=== PATIENT | male | born 1955 | race Hispanic/Latino ===

== ENCOUNTER 2025-02-15 14:40 | Emergency (ER) | payer OTHER ==
[2025-02-15 15:13] LABS: Absolute Basophils 0.1 K/uL (0-0.5); Absolute Eosinophils 0.2 K/uL (0-0.5); Absolute Lymphocytes (CBC) 2.6 K/uL (0.7-4.9); Absolute Monocytes 0.4 K/uL (0.1-1.3); Absolute Neutrophil 2.8 K/uL (1.8-8.0); Basophils % 1.1 % (0-1.3); Eosinophils % 3.1 % (0-4.4); Hematocrit 43.4 % (39.6-49.0); Lymphocytes % 43.1 % (15.3-44.8); MCHC 34.5 g/dL (32.0-36.0); MPV 8.5 fL (7.6-11.3); Neutrophils % 45.7 % (41.7-73.7); Nucleated Red Blood Cells % 0.1 % (0-0); Platelets 159 thou/uL (152-406); RBC Red Blood Cell Count 4.99 M/uL (4.33-5.43); Red Cell Distribution Width 13.8 % (12.1-15.2)
[2025-02-15 15:14] LABS: PT Prothrombin Time 10.9 SECONDS (10-13.0); Protime INR 0.95
[2025-02-15 15:32] LABS: Albumin 3.5 g/dL (3.4-5.0); Albumin/Globulin Ratio 1.1 (1.1-1.8); Anion Gap 7.3 mEq/L (5.0-15.0); Bilirubin Direct 0.3 mg/dL (0-0.2); Bilirubin Indirect, Calculated 0.8 mg/dL (0.2-0.8); Bilirubin Total 1.1 mg/dL (0.2-1.0); Globulin 3.1 g/dL (2.3-3.5); Magnesium 2.1 mg/dL (1.6-2.4); Potassium 3.3 mEq/L (3.5-5.1); Protein, Total 6.6 g/dL (6.4-8.2); Troponin High Sensitivity 8.9 pg/mL (<58.9)
--- NOTE | 2025-02-15 15:38 | ER ---
Nurse's Notes [facility] Name: Sam Barreto Age: 69 yrs Sex: Male : 1955 Arrival Date: 02/15/2025 Time: 14:40 Bed 6 Private MD: Diagnosis: Palpitations, hypokalemia Presentation: 02/15 14:59 Chief complaint: Patient states: he had a brief period of palpitations earlier today ap3 while at [employer]. patient denies any pain at this time. Coronavirus screen: At this time, the client does not indicate any symptoms associated with coronavirus-19. Ebola Screen: No symptoms or risks identified at this time. Initial Sepsis Screen: Does the patient meet any 2 criteria? No. Patient's initial sepsis screen is negative. Does the patient have a suspected source of infection? No. Patient's initial sepsis screen is negative. Risk Assessment: Do you want to hurt yourself or someone else? Patient reports no desire to harm self or others. Onset of symptoms was February 15, 2025. 14:59 Method Of Arrival: Ambulatory ap3 14:59 Acuity: ZOEY 2 ap3 Triage Assessment: 15:02 General: Appears in no apparent distress. Behavior is calm, cooperative, appropriate ap3 for age. Pain: Denies pain. Neuro: Level of Consciousness is awake, alert, obeys commands, Oriented to person, place, time, situation. Cardiovascular: Reports palpitations, Denies chest pain. Respiratory: Airway is patent Respiratory effort is even, unlabored, Respiratory pattern is regular, symmetrical. Historical: - Allergies: 15:00 No Known Allergies; ap3 - Home Meds: 15:00 losartan oral [Active]; Aspirin Oral [Active]; ap3 - PMHx: 15:00 Atrial fibrillation; Hypertensive disorder; Hypercholesterolemia; ap3 - Immunization history:: Flu vaccine is up to date. - Infectious Disease History:: Denies. - Social history:: Smoking status: Patient denies any tobacco usage or history of. Screenin:02 Abuse screen: Denies threats or abuse. Nutritional screening: No deficits noted. ap3 Tuberculosis screening: No symptoms or risk factors identified. 15:07 [facility] ED Fall Risk Assessment (Adult) History of falling in the last 3 months, me1 including since admission No falls in past 3 months (0 pts) Confusion or Disorientation No (0 pts) Intoxicated or Sedated No (0 pts) Impaired Gait No (0 pts) Mobility Assist Device Used No (0 pt) Altered Elimination No (0 pt) Score/Fall Risk Level 0 - 2 = Low Risk Maintained a safe environment, Provided non-skid footwear, Hourly rounding (assess needs \T\ fall precautionary measures) done. Assessment: 15:07 General: Appears in no apparent distress. well groomed, well developed, well nourished, me1 Behavior is calm, cooperative, appropriate for age, Reports he had a brief period of palpitations earlier today while at [employer]. patient denies any pain at this time. Pain: Denies pain. Neuro: Level of Consciousness is awake, alert, obeys commands, Oriented to person, place, time, situation, Appropriate for age. Cardiovascular: Reports palpitations, Patient's skin is warm and dry. Respiratory: Airway is patent Respiratory effort is even, unlabored, Respiratory pattern is regular, symmetrical. GI: No signs and/or symptoms were reported involving the gastrointestinal system. : No signs and/or symptoms were reported regarding the genitourinary system. EENT: No signs and/or symptoms were reported regarding the EENT system. Derm: Skin is intact, is healthy with good turgor, Skin is pink, warm \T\ dry. Musculoskeletal: No signs and/or symptoms reported regarding the musculoskeletal system. Vital Signs: 14:59 BP 147 / 77; Pulse 63; Resp 17; Temp 98.1; Pulse Ox 99% ; Weight 68.04 kg; Height 5 ft. ap3 7 in. ; Pain 0/10; 15:00 BP 140 / 79; Pulse 60; Resp 15; Pulse Ox 100% ; me1 15:45 BP 137 / 72; Pulse 60; Resp 14; Temp 98.4; Pulse Ox 100% ; me1 14:59 Body Mass Index 23.49 (68.04 kg, 170.18 cm) ap3 14:59 Pain Scale: Adult ap3 ED Course: 14:43 Patient arrived in ED. im 14:43 Howard Chavez MD is Attending Physician. sp3 14:49 Alexa Maza, SMITHA is Primary Nurse. me1 14:59 EKG done, by ED staff, reviewed by Howard Chavez MD. ap3 14:59 Client placed on continuous cardiac and pulse oximetry monitoring. NIBP monitoring ap3 applied. ekg monitor tech on. Pulse ox on. NIBP on. 15:00 Triage completed. ap3 15:02 Arm band placed on right wrist. ap3 15:02 Patient has correct armband on for positive identification. Bed in low position. Call ap3 light in reach. Side rails up X 1. Adult w/ patient. 15:04 Basic Metabolic Panel Sent. me1 15:05 CBC with Diff Sent. me1 15:05 LFT's Sent. me1 15:05 Magnesium Sent. me1 15:05 NT PRO-BNP Sent. me1 15:05 PT-INR Sent. me1 15:05 Initial lab(s) drawn, by me, sent to lab. Inserted saline lock: 22 gauge in right me1 antecubital area, using aseptic technique. 15:07 No provider procedures requiring assistance completed. me1 15:07 Provided Education on: POC. Verbalized understanding.. me1 15:38 XRAY Chest (1 view) In Process Unspecified. EDMS 15:58 IV discontinued, intact, bleeding controlled, No redness/swelling at site. Pressure me1 dressing applied. Administered Medications: 15:45 Drug: Potassium PO Effervescent Tablet 50 mEq PO once; dissolve in 4 ounces of water or me1 juice Route: PO; 15:54 Follow up: Response: No adverse reaction me1 Medication: 15:07 VIS not applicable for this client. me1 Outcome: 15:38 Discharge ordered by . sp3 15:58 Discharged to home ambulatory, with family, me1 15:58 Condition: stable 15:58 Discharge instructions given to patient, family, Instructed on discharge instructions, follow up and referral plans. Demonstrated understanding of instructions, follow-up care, 15:58 Patient left the ED. me1 Signatures: Dispatcher [employer] EDAL Chasity Garcia RN RN ap3 Howard Chavez MD MD sp3 Kayleen Dougherty Michelle, RN RN me1 Corrections: (The following items were deleted from the chart) 15:07 14:59 Chief complaint: Patient states: he had a brief period of palpitations earlier me1 today while at [employer]. patient denies any pain at this time. ap3 15:07 14:59 Coronavirus screen: At this time, the client does not indicate any symptoms me1 associated with coronavirus-19. ap3
--- NOTE | 2025-02-15 15:38 | EDPHYS ---
Physician Documentation [facility] Name: Sam Barreto Age: 69 yrs Sex: Male : 1955 Arrival Date: 02/15/2025 Time: 14:40 Bed 6 Private MD: ED Physician Howard Chavez HPI: 02/15 15:00 This 69 yrs old Male presents to ER via Ambulatory with complaints of Palpitations. sp3 15:00 69-year-old male with history of prior atrial fibrillation status post ablation not sp3 currently anticoagulated or in atrial fibrillation, hypertension that presents to the ED with a resolved episode of palpitations that lasted approximately 1 to 2 minutes. Patient states he was standing in line at [employer] where he started feeling his heartbeat and he kept feeling a for 1 to 2 minutes. He said it felt "a little fast" but did not have any other symptoms including headache, fever, shortness of breath, chest pain, syncope, near syncope, abdominal pain, nausea, vomit, diarrhea, extremity pain, bleeding, or any other signs or symptoms on ROS at this time. Again all symptoms are resolved. Patient is here "just to make sure everything is good". Patient has a an appointment with his crisis counselor tomorrow at [place].. Historical: - Allergies: 15:00 No Known Allergies; ap3 - Home Meds: 15:00 losartan oral [Active]; Aspirin Oral [Active]; ap3 - PMHx: 15:00 Atrial fibrillation; Hypertensive disorder; Hypercholesterolemia; ap3 - Immunization history:: Flu vaccine is up to date. - Infectious Disease History:: Denies. - Social history:: Smoking status: Patient denies any tobacco usage or history of. ROS: 15:04 Constitutional: Negative for fever, chills, and weight loss, Eyes: Negative for injury, sp3 pain, redness, and discharge, ENT: Negative for injury, pain, and discharge, Neck: Negative for injury, pain, and swelling, Respiratory: Negative for shortness of breath, cough, wheezing, and pleuritic chest pain, Abdomen/GI: Negative for abdominal pain, nausea, vomiting, diarrhea, and constipation, Back: Negative for injury and pain, MS/Extremity: Negative for injury and deformity, Skin: Negative for injury, rash, and discoloration, Neuro: Negative for headache, weakness, numbness, tingling, and seizure, Psych: Negative for depression, anxiety, suicide ideation, homicidal ideation, and hallucinations, Allergy/Immunology: Negative for hives, rash, and allergies, Endocrine: Negative for neck swelling, polydipsia, polyuria, polyphagia, and marked weight changes, Hematologic/Lymphatic: Negative for swollen nodes, abnormal bleeding, and unusual bruising, 15:04 All other systems are negative, Exam: 15:05 Constitutional: This is a well developed, well nourished patient who is awake, alert, sp3 and in no acute distress. Head/Face: Normocephalic, atraumatic. Eyes: Pupils equal round and reactive to light, extra-ocular motions intact. Lids and lashes normal. Conjunctiva and sclera are non-icteric and not injected. Cornea within normal limits. Periorbital areas with no swelling, redness, or edema. Neck: Trachea midline, no thyromegaly or masses palpated, and no cervical lymphadenopathy. Supple, full range of motion without nuchal rigidity, or vertebral point tenderness. No Meningismus. Chest/axilla: Normal chest wall appearance and motion. Nontender with no deformity. No lesions are appreciated. Cardiovascular: Regular rate and rhythm with a normal S1 and S2. No gallops, murmurs, or rubs. Normal PMI, no JVD. No pulse deficits. Respiratory: Lungs have equal breath sounds bilaterally, clear to auscultation and percussion. No rales, rhonchi or wheezes noted. No increased work of breathing, no retractions or nasal flaring. Abdomen/GI: Soft, non-tender, with normal bowel sounds. No distension or tympany. No guarding or rebound. No evidence of tenderness throughout. Back: No spinal tenderness. No costovertebral tenderness. Full range of motion. Skin: Warm, dry with normal turgor. Normal color with no rashes, no lesions, and no evidence of cellulitis. MS/ Extremity: Pulses equal, no cyanosis. Neurovascular intact. Full, normal range of motion. Neuro: Awake and alert, GCS 15, oriented to person, place, time, and situation. Cranial nerves II-XII grossly intact. Motor strength 5/5 in all extremities. Sensory grossly intact. Cerebellar exam normal. Normal gait. Psych: Awake, alert, with orientation to person, place and time. Behavior, mood, and affect are within normal limits. 15:05 Cardiovascular: , 15:06 ECG was reviewed by the Attending Physician. EKG demonstrates normal sinus rhythm at 60 sp3 bpm with normal intervals, normal QRS, normal axis, normal ST/T-segment's without evidence of acute ischemia. Vital Signs: 14:59 BP 147 / 77; Pulse 63; Resp 17; Temp 98.1; Pulse Ox 99% ; Weight 68.04 kg; Height 5 ft. ap3 7 in. ; Pain 0/10; 15:00 BP 140 / 79; Pulse 60; Resp 15; Pulse Ox 100% ; me1 15:45 BP 137 / 72; Pulse 60; Resp 14; Temp 98.4; Pulse Ox 100% ; me1 14:59 Body Mass Index 23.49 (68.04 kg, 170.18 cm) ap3 14:59 Pain Scale: Adult ap3 MDM: 14:49 Medical Screening Exam initiated sp3 15:36 Data reviewed: vital signs, nurses notes, lab test result(s), radiologic studies. sp3 15:37 ED course: 69-year-old male with PMH above now with a resolved episode of atrial sp3 fibrillation. Patient is currently in a sinus rhythm with normal EKG. General labs and electrolytes and chest x-ray pending. Differential diagnosis includes resolved arrhythmia, electrolyte abnormality, sensation of palpitations without abnormal rhythm, among others. If workup negative we will safely discharge patient home and he already has an appointment with his crisis counselor set for tomorrow as a routine appointment.. ED course: Full workup negative except potassium at 3.3. We will replenish and safely discharge patient home.. 02/15 14:49 Order name: Basic Metabolic Panel; Complete Time: 15:35 sp3 02/15 14:49 Order name: CBC with Diff; Complete Time: 15:35 sp3 02/15 14:49 Order name: LFT's; Complete Time: 15:35 sp3 02/15 14:49 Order name: Magnesium; Complete Time: 15:35 sp3 02/15 14:49 Order name: NT PRO-BNP; Complete Time: 15:35 sp3 02/15 14:49 Order name: PT-INR; Complete Time: 15:35 sp3 02/15 14:49 Order name: Troponin HS; Complete Time: 15:35 sp3 02/15 14:49 Order name: XRAY Chest (1 view); Complete Time: 15:49 sp3 02/15 14:49 Order name: Cardiac monitoring; Complete Time: 15:03 sp3 02/15 14:49 Order name: EKG - Nurse/Tech; Complete Time: 15:03 sp3 02/15 14:49 Order name: IV Saline Lock; Complete Time: 15:04 sp3 02/15 14:49 Order name: Labs collected and sent; Complete Time: 15:04 sp3 02/15 14:49 Order name: O2 Per Protocol; Complete Time: 15:03 sp3 02/15 14:49 Order name: O2 Sat Monitoring; Complete Time: 15:03 sp3 Administered Medications: 15:45 Drug: Potassium PO Effervescent Tablet 50 mEq PO once; dissolve in 4 ounces of water or me1 juice Route: PO; 15:54 Follow up: Response: No adverse reaction me1 Disposition Summary: 02/15/25 15:38 Discharge Ordered Notes: Location: Home sp3 Condition: Stable sp3 Diagnosis - Palpitations, hypokalemia sp3 Followup: sp3 - With: Private Physician - When: Upon discharge from the Emergency Department - Reason: Continuance of care Discharge Instructions: - Discharge Summary Sheet sp3 - Palpitations sp3 - Hypokalemia sp3 Forms: - Medication Reconciliation Form sp3 - Antibiotic Education sp3 - Prescription Opioid Use sp3 - Patient Portal Instructions sp3 - Leadership Thank You Letter sp3 Signatures: Dispatcher [employer] Chasity Triplett RN RN ap3 Howard Chavez MD MD sp3 Alexa Maza RN RN me1 Corrections: (The following items were deleted from the chart) 14:50 14:50 BASIC METABOLIC PANEL+C.LAB.BRZ ordered. EDMS EDMS 14:50 14:50 CBC+H.LAB.BRZ ordered. EDMS EDMS 14:50 14:50 HEPATIC FUNCTION+C.LAB.BRZ ordered. EDMS EDMS 14:50 14:50 MAGNESIUM+C.LAB.BRZ ordered. EDMS EDMS 14:50 14:50 PROBNP+C.LAB.BRZ ordered. EDMS EDMS 14:50 14:50 PROTIME (+INR)+COAG.LAB.BRZ ordered. EDMS EDMS 14:50 14:50 Troponin High Sensitivity+C.LAB.BRZ ordered. EDMS EDMS 14:50 14:50 Chest Single View+RAD.RAD.BRZ ordered. EDWY EDMS 15:37 15:36 Data reviewed: vital signs, nurses notes, lab test result(s), radiologic studies, sp3 sp3 15:37 15:05 Constitutional: This is a well developed, well nourished patient who is awake, sp3 alert, and in no acute distress. Head/Face: Normocephalic, atraumatic. Eyes: Pupils equal round and reactive to light, extra-ocular motions intact. Lids and lashes normal. Conjunctiva and sclera are non-icteric and not injected. Cornea within normal limits. Periorbital areas with no swelling, redness, or edema. Neck: Trachea midline, no thyromegaly or masses palpated, and no cervical lymphadenopathy. Supple, full range of motion without nuchal rigidity, or vertebral point tenderness. No Meningismus. Chest/axilla: Normal chest wall appearance and motion. Nontender with no deformity. No lesions are appreciated. Respiratory: Lungs have equal breath sounds bilaterally, clear to auscultation and percussion. No rales, rhonchi or wheezes noted. No increased work of breathing, no retractions or nasal flaring. Abdomen/GI: Soft, non-tender, with normal bowel sounds. No distension or tympany. No guarding or rebound. No evidence of tenderness throughout. Back: No spinal tenderness. No costovertebral tenderness. Full range of motion. Skin: Warm, dry with normal turgor. Normal color with no rashes, no lesions, and no evidence of cellulitis. MS/ Extremity: Pulses equal, no cyanosis. Neurovascular intact. Full, normal range of motion. Neuro: Awake and alert, GCS 15, oriented to person, place, time, and situation. Cranial nerves II-XII grossly intact. Motor strength 5/5 in all extremities. Sensory grossly intact. Cerebellar exam normal. Normal gait. Psych: Awake, alert, with orientation to person, place and time. Behavior, mood, and affect are within normal limits. sp3 15:37 15:05 Cardiovascular: 69-year-old male with PMH above now with a resolved episode of sp3 atrial fibrillation. Patient is currently in a sinus rhythm with normal EKG. General labs and electrolytes and chest x-ray pending. Differential diagnosis includes resolved arrhythmia, electrolyte abnormality, sensation of palpitations without abnormal rhythm, among others. If workup negative we will safely discharge patient home and he already has an appointment with his crisis counselor set for tomorrow as a routine appointment., sp3
[2025-02-15] MEDS ORDERED: POTASSIUM 25 MEQ EFFERV TAB ONE (15:43)
--- NOTE | 2025-02-15 15:48 | RAD REPORT ---
EXAMINATION: ONE VIEW CHEST XR CLINICAL INDICATION: PALPITATIONS TECHNIQUE: Frontal chest projection is submitted. Examination is limited by patient positioning and t echnique. COMPARISON: No prior exam. FINDINGS: The lungs are diffusely emphysematous but grossly clear. The heart is upper limit of normal in size. No displaced fractures identified. IMPRESSION: No acute intrathoracic abnormalities.
[2025-02-15 16:45] VITALS: BP 137/72; TEMP 98.4; O2SAT 100
--- NOTE | 2025-02-16 10:56 | EKG ---
Test Date: 2025-02-15 Test Time: 14:57:05 [employer] Controlled Machine: ALP MEASUREMENT RESULTS: Intervals: Rate: 60 IN: 174 QRSD: 80 QT: 428 QTc: 428 [place]: P: 71 IN: 174 QRS: 64 T: 73 INTERPRETIVE STATEMENTS: Normal sinus rhythm Normal ECG No previous ECG available for comparison Electronically Signed On 02-16-25 10:54:50 CDT by Shane De Leon
== END 2025-02-15 15:58 | disposition home or self-care (01) ==
LOC: ER 14:40
DX: E87.6 Hypokalemia (principal); I10 Essential (primary) hypertension; I48.91 Unspecified atrial fibrillation; Z79.82 Long term (current) use of aspirin
CPT/HCPCS: 36415; 71045; 80048; 80076; 83735; 83880; 84484; 85025; 85610; 93005; 99284